=== PATIENT | female | born 1955 | race Caucasian/White ===

== ENCOUNTER 2019-06-23 05:39 | Outpatient (CLI) | payer MEDICARE ==
[~2019-06-23] VITALS: Ht 170.2 cm; Wt 106.8 kg
[2019-06-23] MEDS ORDERED: CALC-654 PO (12:23)
[2019-06-23] MEDS ORDERED: MV-M1TAB57 PO (12:23)
[2019-06-23] MEDS ORDERED: TURM538C PO (12:23)
[2019-06-23] MEDS ORDERED: CHOL200078 PO (12:23)
[2019-06-23] MEDS ORDERED: LACT1CAP72 PO (12:23)
[2019-06-23] MEDS ORDERED: SOUR1000 PO (12:23)
[2019-06-23] MEDS ORDERED: OMEG1CAP24 PO (12:23)
[2019-06-23] MEDS ORDERED: UBID100C17 PO (12:23)
[2019-06-23] MEDS ORDERED: METO50TA7 PO (12:23)
[2019-06-23] MEDS ORDERED: MAGN400T39 PO (12:23)
== END 2019-06-23 12:44 | disposition home or self-care (01) ==
LOC: PREOP 05:39
PROVIDERS: ATTEND Specialist
DX: Z01.818 Encounter for other preprocedural examination (principal)

== ENCOUNTER 2019-06-25 07:39 | Day surgery (SDC) | payer MEDICARE, OTHER ==
[~2019-06-25] VITALS: Ht 170.2 cm; Wt 106.8 kg
[~2019-06-25 07:39] MED LIST: CALC-654 PO; CHOL200078 PO; LACT1CAP72 PO; MAGN400T39 PO; METO50TA7 PO; MV-M1TAB57 PO; OMEG1CAP24 PO; SOUR1000 PO; TURM538C PO; UBID100C17 PO
[2019-06-25] MEDS ORDERED: MOXIFLOXACIN OPHTH SOLN 5 MG/ML 0.3 ML SYRINGE OP ONE (07:45)
[2019-06-25] MEDS ORDERED: TIMOLOL MALEATE 0.5% 5 ML (TIMOPTIC) BTL OU PRN (07:45)
[2019-06-25] MEDS ORDERED: LIDOCAINE PF 1% 2 ML VIAL IR PRN (07:45)
[2019-06-25] MEDS ORDERED: POVIDONE (BETADINE) OPHTH SOLN 5% 30 ML OP ONE (07:45)
[2019-06-25] MEDS: TETRACAINE 0.5% OPHTH SOLN 4 ML BTL (SINGLE DOSE ONLY) OU PRN ×4 (07:57→08:23)
[2019-06-25 08:07] VITALS: BP 150/83
[2019-06-25] MEDS: CYCLOPENTOLATE 1% (CYCLOGYL) 2 ML DROPS OP SCH ×3 (08:08→08:23)
[2019-06-25] MEDS: PHENYLEPHRINE 10% OPHTH (NEO-SYN) 5 ML BTL OU SCH ×3 (08:08→08:23)
--- NOTE | 2019-06-25 08:50 | Ophthalmologist Pre-Op Note ---
Pre-Operative Progress Note H&P Reviewed The H&P was reviewed, patient examined and no changes noted. Date H&P Reviewed: Jun 25, 2019 Time H&P Reviewed: 08:50 Pre-Op Dx Cataract, Right Eye ZONIA CROWDER MD Jun 25, 2019 08:50
[2019-06-25] MEDS ORDERED: MIDAZOLAM 2 MG/2 ML (VERSED) VIAL ONE (08:53)
[2019-06-25] MEDS ORDERED: acetaZOLAMIDE ER 500 MG CAP (DIAMOX SEQUELS) PO ONE (09:00)
--- NOTE | 2019-06-25 09:21 | Ophthalmology Operative Report ---
Cataract removal/placement IOL PREOPERATIVE DIAGNOSIS: Cataract Right Eye POSTOPERATIVE DIAGNOSIS: Cataract Right Eye PROCEDURE: Cataract removal and placement of posterior chamber implant, right eye SURGEON: Tyrell Crowder ANESTHESIA: Topical with sedation COMPLICATIONS: None ESTIMATED BLOOD LOSS: Minimal DESCRIPTION OF PROCEDURE: After proper informed consent was obtained, the patient, a 63 female, was taken to the Operating Room and the right eye was anesthetized with tetracaine. The right eye was then prepped and draped in the usual manner. A wire lid speculum was placed. A paracentesis was made at the left hand position. Preservative free lidocaine was injected into the anterior chamber followed by viscoelastic. A clear corneal incision was made in the temporal position. A capsulorrhexis was preformed and the central nuclear and cortical material were removed. The posterior capsule was polished and Chavo 24.0 AU00T0 IOL was placed into the capsular bag. The residual viscoelastic was aspirated and balanced saline solution was injected into the anterior chamber. Moxifloxacin was injected into the anterior chamber. The wound was checked and found to be water tight. The patient tolerated the procedure well without complications. TYRELL CROWDER MD Jun 25, 2019 09:21
[2019-06-25 09:30] VITALS: BP 125/66
--- OUTSIDE RECORDS SUMMARY | 2019-06-29 04:42 | XMS REPORT | Continuity of Care Document ---
Author Organization Unknown Address Unknown Phone Unavailable Allergies Active Description Code Type Severity Reaction Onset Reported/Identified Relationship to Patient Clinical Status Yes No Known Drug Allergies [id number] Drug Allergy Unknown N/A 06/23/2019 Medications There is no data. Problems Date Dx Coded Attending Type Code Diagnosis Diagnosed By 06/23/2019 ZONIA CROWDER MD Ot Z01.818 ENCOUNTER FOR OTHER PREPROCEDURAL EXAMIN Procedures There is no data. Results There is no data. Encounters ACCT No. Visit Date/Time Discharge Status Pt. Type Provider Facility Loc./Unit Complaint [id number] 06/25/2019 07:39:00 020 09:30:00 DIS Outpatient ZONIA CROWDER MD Via [facility] CATARACT RIGHT EYE [id number] 06/23/2019 05:39:00 020 12:44:00 DIS Outpatient ZONIA CROWDER MD Via [facility] PREOP CATARACT RIGHT EYE [id number] 07/09/2019 09:30:00 P EN Preadmit ZONIA CROWDER MD Via [facility] CATARACT LEFT EYE
== END 2019-06-25 09:30 | disposition home or self-care (01) ==
LOC: SDC 07:39
PROVIDERS: ATTEND Specialist
DX: H25.11 Age-related nuclear cataract, right eye (principal); I10 Essential (primary) hypertension; Z79.899 Other long term (current) drug therapy

== ENCOUNTER 2019-09-06 09:44 | Outpatient (RCR) | payer MEDICARE, OTHER ==
[~2019-09-06] VITALS: Ht 170 cm; Wt 109.0 kg
== END 2019-09-06 15:10 | disposition home or self-care (01) ==
LOC: PREOP 09:44
PROVIDERS: ATTEND Specialist
DX: Z01.818 Encounter for other preprocedural examination (principal); Z01.812 Encounter for preprocedural laboratory examination
CPT/HCPCS: 87635

== ENCOUNTER 2019-09-10 09:11 | Day surgery (SDC) | payer MEDICARE, OTHER ==
[~2019-09-10] VITALS: Ht 170.2 cm; Wt 109.0 kg
[2019-09-10] MEDS ORDERED: TIMOLOL MALEATE 0.5% 5 ML (TIMOPTIC) BTL OU PRN (09:30)
[2019-09-10] MEDS ORDERED: POVIDONE (BETADINE) OPHTH SOLN 5% 30 ML OP ONE (09:30)
[2019-09-10] MEDS ORDERED: LIDOCAINE PF 1% 2 ML VIAL IR PRN (09:30)
[2019-09-10] MEDS ORDERED: MOXIFLOXACIN OPHTH SOLN 5 MG/ML 0.3 ML SYRINGE OP ONE (09:30)
[2019-09-10] MEDS: TETRACAINE 0.5% OPHTH SOLN 4 ML BTL (SINGLE DOSE ONLY) OU PRN ×4 (09:37→10:01)
[2019-09-10] MEDS: CYCLOPENTOLATE 1% (CYCLOGYL) 2 ML DROPS OP SCH ×3 (09:51→10:01)
[2019-09-10] MEDS: PHENYLEPHRINE 10% OPHTH (NEO-SYN) 5 ML BTL OU SCH ×3 (09:51→10:01)
[2019-09-10 09:54] VITALS: BP 194/92
[2019-09-10] MEDS ORDERED: MIDAZOLAM 2 MG/2 ML (VERSED) VIAL ONE (10:36)
--- NOTE | 2019-09-10 10:41 | Ophthalmologist Pre-Op Note ---
Pre-Operative Progress Note H&P Reviewed The H&P was reviewed, patient examined and no changes noted. Date H&P Reviewed: September 10, 2019 Time H&P Reviewed: 10:40 Pre-Op Dx Cataract, Left Eye ZONIA CROWDER MD September 10, 2019 10:40
[2019-09-10] MEDS: acetaZOLAMIDE ER 500 MG CAP (DIAMOX SEQUELS) PO ONE ×2 (10:54→11:08)
--- NOTE | 2019-09-10 11:04 | Ophthalmology Operative Report ---
Cataract removal/placement IOL PREOPERATIVE DIAGNOSIS: Cataract Left Eye POSTOPERATIVE DIAGNOSIS: Cataract Left Eye PROCEDURE: Cataract removal and placement of posterior chamber implant, left eye SURGEON: Tyrell Crowder ANESTHESIA: Topical with sedation COMPLICATIONS: None ESTIMATED BLOOD LOSS: Minimal DESCRIPTION OF PROCEDURE: After proper informed consent was obtained, the patient, a 63 female, was taken to the Operating Room and the left eye was anesthetized with tetracaine. The left eye was then prepped and draped in the usual manner. A wire lid speculum was placed. A paracentesis was made at the left hand position. Preservative free lidocaine was injected into the anterior chamber followed by viscoelastic. A clear corneal incision was made in the temporal position. A capsulorrhexis was preformed and the central nuclear and cortical material were removed. The posterior capsule was polished and an Chavo 22.5 AU00T0 was placed into the capsular bag. The residual viscoelastic was aspirated and balanced saline solution was injected into the anterior chamber. Moxifloxacin was injected into the anterior chamber. The wound was checked and found to be water tight. The patient tolerated the procedure well without complications. TYRELL CROWDER MD September 10, 2019 11:04
[2019-09-10 11:13] VITALS: BP 194/92
--- OUTSIDE RECORDS SUMMARY | 2019-09-10 11:14 | XMS REPORT | Continuity of Care Document ---
Author Organization Unknown Address Unknown Phone Unavailable Allergies Active Description Code Type Severity Reaction Onset Reported/Identified Relationship to Patient Clinical Status Yes No Known Drug Allergies [id number] Drug Allergy Unknown N/A 06/23/2019 Medications There is no data. Problems Date Dx Coded Attending Type Code Diagnosis Diagnosed By 03/20/1509 ZONIA CROWDER MD, Ot Z01.812 ENCOUNTER FOR PREPROCEDURAL LABORATORY E 03/20/1509 ZONIA CROWDER MD Ot Z01.818 ENCOUNTER FOR OTHER PREPROCEDURAL EXAMIN 06/23/2019 ZONIA CROWDER MD Ot Z01.818 ENCOUNTER FOR OTHER PREPROCEDURAL EXAMIN 06/25/2019 ZONIA CROWDER MD Ot H25.11 AGE-RELATED NUCLEAR CATARACT, RIGHT EYE 06/25/2019 ZONIA CROWDER MD Ot I10 ESSENTIAL (PRIMARY) HYPERTENSION 06/25/2019 ZONIA CROWDER MD Ot Z79.899 OTHER [facility] (CURRENT) DRUG THERAPY 06/29/2019 ZONIA CROWDER MD Ot H25.11 AGE-RELATED NUCLEAR CATARACT, RIGHT EYE 06/29/2019 ZONIA CROWDER MD Ot I10 ESSENTIAL (PRIMARY) HYPERTENSION 06/29/2019 ZONIA CROWDER MD Ot Z79.899 OTHER [employer] (CURRENT) DRUG THERAPY Procedures There is no data. Results Test Result Range Coronavirus SARS-CoV-2 SO 2018 - 0 13:15 Coronavirus Ab [Units/volume] in Serum Negative Negative Encounters ACCT No. Visit Date/Time Discharge Status Pt. Type Provider Facility Loc./Unit Complaint [id number] 09/06/2019 09:44:00 020 15:10:00 DIS Outpatient ZONIA CROWDER MD Via [facility] PREOP CATARACT LEFT EYE [id number] 07/09/2019 09:30:00 23:59:59 CLS Preadmit ZONIA CROWDER MD Via [facility] CATARACT LEFT EYE [id number] 06/25/2019 07:39:00 09:30:00 DIS Outpatient ZONIA CROWDER MD Via [facility] CATARACT RIGHT EYE [id number] 06/23/2019 05:39:00 12:44:00 DIS Outpatient ZONIA CROWDER MD Via [facility] PREOP CATARACT RIGHT EYE [id number] 09/10/2019 09:11:[address] Outpatient ZONIA CROWDER MD Via [facility] CATARACT LEFT EYE
--- NOTE | 2019-09-10 11:26 | Anesthesia-General Post-Op ---
MAC Patient Condition Mental Status/LOC: Same as Preop Cardiovascular: Satisfactory Nausea/Vomiting: Absent Respiratory: Satisfactory Pain: Controlled Complications: Absent Post Op Complications Complications None Follow Up Care/Instructions Patient Instructions None needed. Anesthesiology Discharge Order Discharge Order Patient is doing well, no complaints, stable vital signs, no apparent adverse anesthesia problems. No complications reported per nursing. VIKKI RICHARDSON CRNA September 10, 2019 11:26
== END 2019-09-10 11:08 | disposition home or self-care (01) ==
LOC: SDC 09:11
PROVIDERS: ATTEND Specialist
DX: H25.12 Age-related nuclear cataract, left eye (principal); M19.90 Unspecified osteoarthritis, unspecified site; I10 Essential (primary) hypertension; J31.0 Chronic rhinitis; Z79.899 Other long term (current) drug therapy; Z90.710 Acquired absence of both cervix and uterus; Z83.3 Family history of diabetes mellitus